=== PATIENT | male | born 1940 | race Caucasian/White ===

== ENCOUNTER → 2016-12-25 | Outpatient (CLI) | payer OTHER, BC ==
[~2016-12-25] MED LIST: ALDACTONE25 MG PO; AMLODIPINE BESYL5 MG PO; ASPIR 8181 MG PO; ASPIRIN EC81 M1 PO; ASPIRIN325 PO; BYSTOLIC 5 MG5 M1 PO; CARDURA4 MG PO; CHLORTHALIDONE25 MG PO; COUMADIN 5 MG TA5 M1 PO; COZAAR 25 MG TA25 M2 PO; COZAAR 50 MG TA50 M1 PO; COZAAR 50 MG TA50 M2 PO; DOCUSATE SODIU100 MG PO; EFFIENT10 MG PO; LEVOXYL50 MCG PO; LIPITOR 20 MG T20 M1 PO; LIVALO2 MG PO; LIVALO4 MG PO; MULTAQ400 MG PO; MULTI-VITAMIN1 EAC5 PO; NIACIN 500 MG500 M1 PO; NORVASC 5 MG TAB5 MG PO; PLAVIX 75 MG TA75 M1 PO; RESTORIL15 MG PO; TOPROL XL25 MG PO
== END ==
LOC: RAD 15:53
DX: M19.041 Primary osteoarthritis, right hand (principal)

== ENCOUNTER 2018-04-23 13:37 | Inpatient (IN) | payer OTHER, BC ==
[~2018-04-23] VITALS: Ht 170.2 cm; Wt 72.6 kg
--- NOTE | ~2018-04-23 | PATH ---
[facility] [address] [place] [address] PATHOLOGY RPT PROCEDURE Name: LUCAS MENEZES Room #: 360-P ADM IN M.R.#: [id number] Admission: 04/23/18 Date of : 42 Discharge: Report #: [id number] Path Case #: [id number] [facility] Accession Number: [id number] . 01 Material submitted: . BX OF GASTRITIS R/O H. PYLORI . 01 Clinical history: . Pre-OP DX: Hx of ulcers, GI bleed Post-OP DX: Gastritis, small hiatal hernia . 02 Diagnosis: Gastric mucosa, gastritis, endoscopic biopsy: - Mild reactive gastropathy. - Negative for intestinal metaplasia or atrophy. - Negative for Helicobacter pylori (properly controlled immunohistochemical stain performed). . (IUV:at;04/27/2018) QTA/04/27/2018 . 02 Electronically signed: . Alissa Merino MD, Pathologist NPI- [id number] . 01 Gross description: . Received in formalin labeled "Lucas Menezes HANNAH gastritis, rule out H. pylori," are 4 segments of thomas soft tissue measuring 0.9 x 0.7 x 0.2 cm in aggregate dimensions and ranging from 0.3 to 0.6 cm in maximum dimension. The specimen is submitted entirely in cassette A1. (TSD; 04/26/2018) TOB/TOB . 02 Pathologist provided ICD-10: K31.9 . 02 CPT . 170296, W80006 Specimen Comment: A courtesy copy of this report has been sent to Specimen Comment: [phone], , . Specimen Comment: Report sent to , DR BENITO / DR PETER Performed at: [address] [id number] MD Surjit Park MD Phone: [phone] Performed at: [address] [address] PATHOLOGY RPT PROCEDURE Name: LUCAS MENEZES Room #: 360-P ADM IN M.R.#: [id number] Admission: 04/23/18 Date of : 42 Discharge: Report #: [id number] Path Case #: [id number] [address] [place] [id number] MD Alissa Merino MD Phone: [phone]
--- NOTE | ~2018-04-23 | P ---
[facility] [place] [address] PROCEDURE REPORT Name: EMILY FLORES Room #: 360-P [facility] IN M.R.#: [id number] Admission: 04/23/18 Attend Phys: Brenton Blake MD Discharge: Date of : 41 Report #: [id number] THIS REPORT FOR: //name// CC: Brenton Rousseau BRIEF HISTORY: The patient is a 78-year-old male who was admitted with gastrointestinal bleeding. He had been on Eliquis. He does have a previous history of ulcer disease. He had a colonoscopy 2 days ago, which revealed diverticular disease which was thought to be the source of his bleeding, although active bleeding was not identified. However, he subsequently passed additional bloody stools and due to prior history of ulcer disease, upper endoscopy was recommended. PREOPERATIVE DIAGNOSIS: Gastrointestinal bleeding and anticoagulation. POSTOPERATIVE DIAGNOSES: 1. Mild diffuse gastritis. 2. Moderate hiatus hernia. MEDICATIONS: Deep sedation with propofol per anesthesia. SPECIMEN: Biopsies of gastritis. ESTIMATED BLOOD LOSS: 3 mL. PROCEDURE: EGD with biopsy. FINDINGS: Prior to propofol sedation, procedure of upper endoscopy was discussed with the patient as well as potential risks and its complications. He indicates he understands and desires to proceed. DESCRIPTION OF PROCEDURE: With the patient in left lateral decubitus position, the Olympus video endoscope was inserted in the cervical esophagus under direct vision without difficulty. Examination of this organ through its entire length revealed normal esophageal mucosa down the squamocolumnar junction. Squamocolumnar junction was inspected and noted to be unremarkable. The scope was advanced in the stomach, which was examined on end view as well as retroflexed views. Upon retroflexion, no mass lesions were seen, the hiatus hernia was seen. There was also some medication debris scattered about. There were no other solids or liquids in the stomach. No blood was seen proximally. The scope was advanced distally and noted to have diffuse gastritis with linear striations in the antrum of the stomach, but no ulcers, erosions or bleeding lesions. Vascular ectasias were not seen. The pylorus was unremarkable. Duodenal bulb was unremarkable. Duodenal sweep was unremarkable down to the ligament of Treitz. Scope was advanced around the ligament of Treitz and the [facility] [address] [place] [address] PROCEDURE REPORT Name: EMILY FLORES Room #: 360-P [facility] IN M.R.#: [id number] Admission: 04/23/18 Attend Phys: Brenton Blake MD Discharge: Date of : 41 Report #: [id number] first segment of the jejunum was unremarkable. At that point, the scope was slowly withdrawn and careful circumferential views were obtained. Gastric biopsies were obtained. The patient tolerated the procedure well. DISPOSITION: The patient with GI bleeding, an obvious bleeding source or ulcers were not seen on upper endoscopy. We will continue to monitor for bleeding. If there is further bleeding and thought not to be related to his colon, may consider further evaluation such as a bleeding scan or potentially a small bowel capsule study if needed. <ELECTRONICALLY SIGNED> By: Patrice Goodrich MD 04/27/18 1158 1158 2258 Patrice Goodrich MD /nt
[~2018-04-23 13:37] MED LIST changes: +ATORVASTATIN CA40 MG PO; +BENICAR20 MG PO; +DEMADEX20 MG PO; +ELIQUIS2.5 MG PO; +FLAGYL500 MG PO; +LEVAQUIN 500 M500 M2 PO; +PACERONE 200 M200 M1 PO; +SENOKOT-S1 TA2 PO
[2018-04-23 13:38] VITALS: BP 129/49
[2018-04-23 14:15] LABS: ABSOLUTE NEUTROPHILS 4.1 thou/uL (1.4-8.2); BASOPHILS 0.8 % (0.0-2.0); EOSINOPHILS 2.6 % (0.0-3.0); HEMATOCRIT 28.3 % (42.0-52.0); HEMOGLOBIN 9.5 gm/dL (14.0-18.0); LYMPHOCYTES 14.6 % (24.0-44.0); MCH 31.7 pg (26.0-34.0); MCHC 33.5 g/dL (28.0-37.0); MCV 94.8 fL (80.0-100.0); MONOCYTES 8.4 % (1.0-8.0); PLATELET COUNT 123 thou/uL (150-400); POLYS 73.6 % (36.0-66.0); RBC 2.98 mil/uL (4.50-6.00); RDW 17.1 % (10.5-14.5); WBC 5.5 thou/uL (4.0-11.0)
[2018-04-23 14:22] LABS: CALCIUM 8.4 mg/dL (8.5-10.1); CREATININE 4.4 mg/dL (0.7-1.3); POTASSIUM 4.2 mmol/L (3.5-5.1)
[2018-04-23 14:34] LABS: APTT 29.1 Seconds (24.5-32.8); INR 1.1; PROTIME 10.9 Seconds (9.3-11.4)
[2018-04-23 15:40] VITALS: BP 115/55; BP 129/49
[2018-04-23 16:55] VITALS: BP 163/57
[2018-04-23 18:16] LABS: HEMATOCRIT 26.1 % (42.0-52.0); HEMOGLOBIN 8.7 gm/dL (14.0-18.0)
[2018-04-23 19:03] VITALS: BP 164/69
[2018-04-24 00:06] VITALS: BP 152/57
[2018-04-24 02:31] LABS: HEMATOCRIT 27.4 % (42.0-52.0); HEMOGLOBIN 8.9 gm/dL (14.0-18.0)
[2018-04-24 03:34] VITALS: BP 136/55
[2018-04-24 06:12] LABS: HEMATOCRIT 26.5 % (42.0-52.0); HEMOGLOBIN 8.8 gm/dL (14.0-18.0); MCH 31.9 pg (26.0-34.0); MCHC 33.4 g/dL (28.0-37.0); MCV 95.4 fL (80.0-100.0); PLATELET COUNT 108 thou/uL (150-400); RBC 2.77 mil/uL (4.50-6.00); RDW 17.6 % (10.5-14.5); WBC 5.3 thou/uL (4.0-11.0)
[2018-04-24 06:23] LABS: CALCIUM 8.3 mg/dL (8.5-10.1); CREATININE 4.1 mg/dL (0.7-1.3); MAGNESIUM 2.1 mg/dL (1.8-2.4); POTASSIUM 4.5 mmol/L (3.5-5.1)
[2018-04-24 06:38] LABS: ABSOLUTE NEUTROPHILS 3.8 thou/uL (1.4-8.2); ANISOCYTOSIS 1+
[2018-04-24 06:39] LABS: POLYCHROMASIA OCCASIONAL
[2018-04-24 07:30] VITALS: BP 166/61
[2018-04-24] MEDS ORDERED: MOXIFLOXACIN3 ML OPHTHALMIC (08:03)
[2018-04-24 11:08] LABS: HEMATOCRIT 25.6 % (42.0-52.0); HEMOGLOBIN 8.5 gm/dL (14.0-18.0)
[2018-04-24 11:31] VITALS: BP 180/65
[2018-04-24 16:06] VITALS: BP 174/67
[2018-04-24 18:11] LABS: HEMATOCRIT 24.9 % (42.0-52.0); HEMOGLOBIN 8.2 gm/dL (14.0-18.0)
[2018-04-24 19:17] VITALS: BP 151/61
[2018-04-25 03:50] VITALS: BP 111/60
[2018-04-25 06:32] LABS: HEMATOCRIT 23.9 % (42.0-52.0); HEMOGLOBIN 8.1 gm/dL (14.0-18.0)
[2018-04-25 07:40] VITALS: BP 183/67
[2018-04-25 11:56] VITALS: BP 155/58
[2018-04-25 16:41] VITALS: BP 154/90
[2018-04-25 19:08] VITALS: BP 184/54
[2018-04-25 20:44] VITALS: BP 181/55
[2018-04-26 03:57] VITALS: BP 161/62
[2018-04-26 07:48] VITALS: BP 143/53
[2018-04-26 08:33] LABS: HEMATOCRIT 23.7 % (42.0-52.0); HEMOGLOBIN 7.8 gm/dL (14.0-18.0)
[2018-04-26 13:00] VITALS: BP 164/66
[2018-04-26 15:52] VITALS: BP 158/51
[2018-04-26 20:30] VITALS: BP 140/44
[2018-04-27 05:10] VITALS: BP 177/68
[2018-04-27 05:38] LABS: HEMATOCRIT 22.8 % (42.0-52.0); HEMOGLOBIN 7.5 gm/dL (14.0-18.0); MCH 31.4 pg (26.0-34.0); MCV 95.2 fL (80.0-100.0); RBC 2.39 mil/uL (4.50-6.00); RDW 16.8 % (10.5-14.5); WBC 5.5 thou/uL (4.0-11.0)
[2018-04-27 08:00] VITALS: BP 170/62
[2018-04-27 11:37] VITALS: BP 169/69
[2018-04-27 14:22] VITALS: BP 169/69
== END 2018-04-27 15:43 | disposition home or self-care (01) | DRG 377 ==
LOC: ER 13:37 → 3W 17:17 → ENTRNSPT 04-27 15:27 → EDTRNSPTSTS 04-27 15:30 → 3W 04-27 15:43
PROVIDERS: Nurse Practitioner; Nurse Practitioner Family; Physician Assistant; Specialist
PROC: 0DJD8ZZ Inspection of Lower Intestinal Tract, Via Natural or Artificial Opening Endoscopic (ICD-10-PCS; principal; 2018-04-24)
PROC: 0DB78ZX Excision of Stomach, Pylorus, Via Natural or Artificial Opening Endoscopic, Diagnostic (ICD-10-PCS; 2018-04-26)
DX: K57.31 Diverticulosis of large intestine without perforation or abscess with bleeding (principal); E43 Unspecified severe protein-calorie malnutrition; D62 Acute posthemorrhagic anemia; K29.70 Gastritis, unspecified, without bleeding; I73.9 Peripheral vascular disease, unspecified; E78.00 Pure hypercholesterolemia, unspecified; I48.91 Unspecified atrial fibrillation; I25.10 Atherosclerotic heart disease of native coronary artery without angina pectoris; N18.9 Chronic kidney disease, unspecified; H57.89 Other specified disorders of eye and adnexa; I12.9 Hypertensive chronic kidney disease with stage 1 through stage 4 chronic kidney disease, or unspecified chronic kidney disease; K44.9 Diaphragmatic hernia without obstruction or gangrene; E78.5 Hyperlipidemia, unspecified; R00.1 Bradycardia, unspecified; S00.83XA Contusion of other part of head, initial encounter; X58.XXXA Exposure to other specified factors, initial encounter; K64.8 Other hemorrhoids; Z95.5 Presence of coronary angioplasty implant and graft; Z86.73 Personal history of transient ischemic attack (TIA), and cerebral infarction without residual deficits; Z79.899 Other long term (current) drug therapy; Z79.82 Long term (current) use of aspirin; Z87.891 Personal history of nicotine dependence; Y93.89 Activity, other specified; Y92.89 Other specified places as the place of occurrence of the external cause
CPT/HCPCS: 10779; 62110; 62900; 70005

== ENCOUNTER 2019-01-24 12:29 | Emergency (ER) | payer OTHER, BC ==
[~2019-01-24] VITALS: Ht 180.3 cm; Wt 81.7 kg
[~2019-01-24 12:29] MED LIST changes: +MOXIFLOXACIN3 ML OPHTHALMIC
[2019-01-24] MEDS ORDERED: KEFLEX500 M1 PO (14:30)
[2019-01-24] MEDS ORDERED: PACERONE 200 M200 M1 PO (14:42)
[2019-01-24] MEDS ORDERED: NORVASC2.5 MG PO (14:44)
[2019-01-24] MEDS ORDERED: ASPIR 8181 MG PO (14:46)
[2019-01-24] MEDS ORDERED: CLONIDINE0.1 PO (14:47)
[2019-01-24 15:36] VITALS: BP 148/76
== END 2019-01-24 14:32 | disposition home or self-care (01) ==
LOC: ER 12:29
DX: S80.02XA Contusion of left knee, initial encounter (principal); L03.116 Cellulitis of left lower limb; I73.9 Peripheral vascular disease, unspecified; I10 Essential (primary) hypertension; I48.91 Unspecified atrial fibrillation; E78.00 Pure hypercholesterolemia, unspecified; Z95.5 Presence of coronary angioplasty implant and graft; Z86.718 Personal history of other venous thrombosis and embolism; W18.39XA Other fall on same level, initial encounter; Y92.89 Other specified places as the place of occurrence of the external cause; Y93.89 Activity, other specified; Y99.8 Other external cause status

== ENCOUNTER → 2019-10-20 | Outpatient (CLI) | payer OTHER, BC ==
[~2019-10-20] MED LIST changes: +CLONIDINE0.1 PO; +KEFLEX500 M1 PO; +NORVASC2.5 MG PO
== END ==
LOC: SJCVC 11:00
PROVIDERS: ATTEND Internal Medicine Cardiovascular Disease
DX: I44.0 Atrioventricular block, first degree (principal); I65.23 Occlusion and stenosis of bilateral carotid arteries; I25.10 Atherosclerotic heart disease of native coronary artery without angina pectoris; I77.1 Stricture of artery; I12.9 Hypertensive chronic kidney disease with stage 1 through stage 4 chronic kidney disease, or unspecified chronic kidney disease; N18.4 Chronic kidney disease, stage 4 (severe); I35.8 Other nonrheumatic aortic valve disorders; I73.9 Peripheral vascular disease, unspecified; E78.5 Hyperlipidemia, unspecified; I48.0 Paroxysmal atrial fibrillation; I71.4 Abdominal aortic aneurysm, without rupture

== ENCOUNTER → 2020-01-04 | Outpatient (CLI) | payer OTHER, BC | LOC: SJCVCIMAG 10:12 | PROVIDERS: ATTEND Internal Medicine Cardiovascular Disease | DX: I65.22 Occlusion and stenosis of left carotid artery (principal); Z87.891 Personal history of nicotine dependence ==

== ENCOUNTER → 2020-01-10 | Outpatient (CLI) | payer OTHER, BC ==
[~2020-01-10] MED LIST changes: +DIOVAN320 MG PO; +MIRCERA30 MCG/0.3 INJECTION; +PLAVIX 75 MG TA75 MG PO; +SYNTHROID25 MC1 PO; +TORSEMIDE20 MG PO
[2020-01-10 13:53] LABS: CREATININE 5.7 mg/dL (0.7-1.3)
== END ==
LOC: CAT 12:52
PROVIDERS: ATTEND Nuclear Medicine Nuclear Cardiology
DX: Z01.812 Encounter for preprocedural laboratory examination (principal); I65.22 Occlusion and stenosis of left carotid artery; I71.2 Thoracic aortic aneurysm, without rupture; K55.1 Chronic vascular disorders of intestine; I71.4 Abdominal aortic aneurysm, without rupture; I70.8 Atherosclerosis of other arteries; I25.10 Atherosclerotic heart disease of native coronary artery without angina pectoris; Z95.2 Presence of prosthetic heart valve; Z96.89 Presence of other specified functional implants

== ENCOUNTER → 2020-01-10 | Outpatient (CLI) | payer OTHER, BC ==
[~2020-01-10] MED LIST changes: +ANTACID CHEWAB1 EACH PO; +FLOMAX0.4 MG PO
== END ==
LOC: SJCVCIMAG 08:17
PROVIDERS: ATTEND Internal Medicine Cardiovascular Disease
DX: I73.9 Peripheral vascular disease, unspecified (principal); I44.0 Atrioventricular block, first degree; I49.3 Ventricular premature depolarization; I71.2 Thoracic aortic aneurysm, without rupture; I67.1 Cerebral aneurysm, nonruptured; I71.4 Abdominal aortic aneurysm, without rupture; I12.0 Hypertensive chronic kidney disease with stage 5 chronic kidney disease or end stage renal disease; N18.5 Chronic kidney disease, stage 5; E78.00 Pure hypercholesterolemia, unspecified; I25.10 Atherosclerotic heart disease of native coronary artery without angina pectoris; I70.1 Atherosclerosis of renal artery; I48.0 Paroxysmal atrial fibrillation; K55.1 Chronic vascular disorders of intestine; Z98.890 Other specified postprocedural states; Z87.891 Personal history of nicotine dependence; Z79.899 Other long term (current) drug therapy; Z86.79 Personal history of other diseases of the circulatory system

== ENCOUNTER 2020-08-06 11:46 | Inpatient (IN) | payer OTHER, BC ==
[~2020-08-06] VITALS: Ht 172.7 cm; Wt 78.0 kg
[~2020-08-06 11:46] MED LIST changes: -ANTACID CHEWAB1 EACH PO; -FLOMAX0.4 MG PO
[2020-08-06 11:56] VITALS: BP 87/51
[2020-08-06 12:44] LABS: BASOPHILS 0.2 % (0.0-2.0); HEMATOCRIT 28.8 % (42.0-52.0); HEMOGLOBIN 9.4 gm/dL (14.0-18.0); LYMPHOCYTES 3.9 % (24.0-44.0); MCH 36.2 pg (26.0-34.0); MCHC 32.7 g/dL (28.0-37.0); MCV 110.7 fL (80.0-100.0); MONOCYTES 5.9 % (1.0-8.0); PLATELET COUNT 166 thou/uL (150-400); RDW 17.9 % (10.5-14.5); WBC 15.5 thou/uL (4.0-11.0)
[2020-08-06 12:49] LABS: CALCIUM 9.3 mg/dL (8.5-10.1); CREATININE 3.4 mg/dL (0.7-1.3); POTASSIUM 4.2 mmol/L (3.5-5.1)
[2020-08-06] MEDS ORDERED: FLOMAX0.4 MG PO (12:54)
[2020-08-06 12:55] LABS: ALBUMIN 2.4 g/dL (3.4-5.0); TOTAL BILIRUBIN 0.7 mg/dL (0.2-1.0); TOTAL PROTEIN 6.1 g/dL (6.4-8.2)
[2020-08-06] MEDS ORDERED: HYDROCODON-ACE1 EAC7 PO (12:57)
[2020-08-06] MEDS ORDERED: ANTACID CHEWAB1 EACH PO (12:57)
[2020-08-06] MEDS ORDERED: ALEVE220 M1 PO (12:58)
[2020-08-06 13:18] LABS: ANISOCYTOSIS 1+; MACROCYTES 1+
--- NOTE | 2020-08-06 13:57 | EKG ---
[address] [employer] [place] [address] ELECTROCARDIOGRAM REPORT Name: EMILY FLORES Room #: 170-15 ADM IN M.R.#: [id number] Admission: 08/06/20 Attend Phys: Basilio Painting MD Discharge: Date of : 41 Report #: [id number] [facility] ED Test Date: 2020-08-06 Test Time: 12:43:03 Pat Name: EMILY FLORES Department: Room: 170 Gender: M Shipping Manager: ts : 1940 Requested By: Bud Hairston Order Number: [id number] MD: Velasquez Das Measurements Intervals [place] Rate: 108 P: TN: QRS: 6 QRSD: 90 T: 126 QT: 387 QTc: 519 Interpretive Statements AFIB Inferior infarct, old Prolonged QT interval Compared to ECG 01/26/2020 07:30:17 Atrial fibrillation now Electronically Signed On 08-06-2020 13:57:27 ASBESTOS HANDLER by Velasquez Das [email or web address] <ELECTRONICALLY SIGNED> By: Velasquez Das MD, [facility] 08/06/20 1357 1243 1243 Velasquez Das MD, FACC /EPI
[2020-08-06 14:32] VITALS: BP 93/52
[2020-08-06 14:41] LABS: FOLIC ACID 13.7 ng/mL (8.6-58.9)
[2020-08-06 15:15] VITALS: BP 115/75
[2020-08-06 15:20] VITALS: BP 103/54
--- NOTE | 2020-08-06 18:51 | NUR ---
TO UNIT FROM [place], ACCOMPANIED BY HIS . AFIB/AFLUTTER PER TELE. REPORTS NO BM FOR A WEEK. ABD SOFT BUT DISTENDED, IF BY FLUID. ABD TENDER TO THE TOUCH. FALL PRECAUTIONS IN PLACE.
[2020-08-06 21:14] VITALS: BP 138/62
[2020-08-07 04:00] VITALS: BP 157/57
--- NOTE | 2020-08-07 04:59 | NUR ---
HYDROCODONE WAS GIVEN FOR PAIN.VERBALIZED RELIEF.OLIGURIC.MONITOR SHOWS SR.POC CONTINUED.
[2020-08-07 05:01] LABS: CALCIUM 8.8 mg/dL (8.5-10.1); MAGNESIUM 1.9 mg/dL (1.8-2.4); POTASSIUM 4.4 mmol/L (3.5-5.1)
[2020-08-07 05:16] LABS: HEMATOCRIT 26.1 % (42.0-52.0); HEMOGLOBIN 8.6 gm/dL (14.0-18.0); MCHC 32.9 g/dL (28.0-37.0); MCV 112.7 fL (80.0-100.0); PLATELET COUNT 155 thou/uL (150-400); RBC 2.32 mil/uL (4.50-6.00); RDW 17.9 % (10.5-14.5); WBC 11.2 thou/uL (4.0-11.0)
[2020-08-07 05:32] LABS: CREATININE 5.3 mg/dL (0.7-1.3)
[2020-08-07 08:10] VITALS: BP 136/56
--- NOTE | 2020-08-07 10:11 | 2DMMODE ---
[facility] [address] 2 D/M-MODE ECHOCARDIOGRAM Name: EMILY FLORES Room #: 208-P ADM IN M.R.#: [id number] Admission: 08/06/20 Attend Phys: Basilio Painting MD Discharge: Date of : 41 Report #: [id number] THIS REPORT FOR: cc: Ollie Anthony MD, Samuel D. MD Santiago, Patrick MD [facility] ~ APPROVED REPORT Study performed: 08/07/2020 08:04:28 EXAM: Comprehensive 2D, Doppler, and color-flow Echocardiogram Patient Location: Bedside Room #: 208 Status: routine BSA: 1.86 HR: 80 bpm BP: 157/57 mmHg Rhythm: NSR Other Information Study Quality: Adequate Indications Hypotension. Hx: Cardiac stents, PAF, PVD, ESRD, PVD, HLP. 2D Dimensions RVDd: 36.67 mm IVSd: 14.67 (7-11mm) LVOT Diam: 21.25 (18-24mm) LVDd: 41.53 mm PWd: 10.63 (7-11mm) Ascending Ao: 29.82 (22-36mm) LVDs: 32.98 (25-40mm) Aortic Root: 35.48 mm Volumes Left Atrial Volume (Systole) Single Plane 4CH: 84.18 mL Single Plane 2CH: 84.35 mL LA ESV Index: 48.00 mL/m2 Aortic Valve AoV Peak David.: 2.90 m/s AO Peak Gr.: 33.72 mmHg LVOT Max P.40 mmHg AO Mean Gr.: 16.98 mmHg AO V2 Mean: 1.96 m/s LVOT Max V: 1.45 m/s [facility] [address] [place] [address] 2 D/M-MODE ECHOCARDIOGRAM Name: EMILY FLORES Room #: 208-P [facility] IN ..#: [id number] Admission: 08/06/20 Attend Phys: Basilio Painting MD Discharge: Date of : 41 Report #: [id number] AO V2 VTI: 58.27 cm PACO Vmax: 1.77 cm2 Mitral Valve E/A Ratio: 0.7 MV Decel. Time: 252.35 ms MV E Max David.: 0.98 m/s MV A David.: 1.35 m/s MV PHT: 73.18 ms Pulmonary Valve PV Peak David.: 1.36 m/s PV Peak Gr.: 7.36 mmHg Tricuspid Valve TR Peak David.: 2.68 m/s RAP Estimate: 5.00 mmHg TR Peak Gr.: 29.00 mmHg PA Pressure: 34.00 mmHg Left Ventricle The left ventricle is normal size. There is normal LV segmental wall motion. Moderate basal septal hypertrophy is present. Left ventricular systolic function is normal. LVEF is 65%. Mild diastolic dysfunction is present (impaired relaxation pattern). Right Ventricle The right ventricle is normal size. The right ventricular systolic function is normal. Atria Left atrium is moderately dilated. The right atrium size is normal. Aortic Valve Aortic valve is moderately calcified. Mild aortic regurgitation. There is mild valvular aortic stenosis. Calculated aortic valve area is 1.8 cm2 with maximum pressure gradient of 34 mmHg and mean pressure gradient of 17 mmHg. Mitral Valve The mitral valve is normal in structure. Moderate mitral annular calcification. Mild mitral regurgitation. No evidence of mitral valve stenosis. Tricuspid Valve The tricuspid valve is normal in structure. Trace tricuspid regurgitation. Estimated PAP is 35mmHg. [facility] [address] [place] [address] 2 D/M-MODE ECHOCARDIOGRAM Name: EMILY FLORES Room #: 208-P [facility] IN M.R.#: [id number] Admission: 08/06/20 Attend Phys: Basilio Painting MD Discharge: Date of : 41 Report #: [id number] Pulmonic Valve Pulmonic valve is not well visualized. Great Vessels The aortic root is normal in size. The ascending aorta is normal in size. IVC is normal in size and collapses >50% with inspiration. Pericardium There is no pericardial effusion. <Conclusion> Normal left ventricular size with moderate basal hypertrophy Ejection fraction 65%, no segmental wall motion abnormality Grade 1 diastolic function Normal right ventricular size and function Left ventricle moderately dilated Color-flow Doppler study was performed of the aortic/mitral/aortic/tricuspid valve Mild aortic valve calcification Mild aortic valve stenosis aortic valve area estimated 1.8 cm and a mean gradient of 34 mmHg Mild mitral valve insufficiency Trace tricuspid valve insufficiency PA pressure estimated 35 mmHg No pericardial effusion <ELECTRONICALLY SIGNED> By: Velasquez Das MD, FACC 08/07/20 1011 1011 1011 Velasquez Das MD, FACC /INF
[2020-08-07 10:58] LABS: ABSOLUTE NEUTROPHILS 9.3 thou/uL (1.4-8.2)
[2020-08-07 10:59] LABS: ANISOCYTOSIS 2+; MACROCYTES 1+; PLATELET ESTIMATE NORMAL
--- NOTE | 2020-08-07 11:39 | NUR ---
Case opened to follow for dc planning. Director Of Architecture visited with the pt and his spouse at bedside. Pt is a&ox4 and reports he is feeling better after being admitted with diverticulitis. He reports being indep with gait and adl's prior to admission. He does use a cane when going outside the home. He is an ESRD pt on hemodialysis at [facility]. is supportive and confirms above. Both drive. They live in their own home, no steps to enter and only one inside. CM role introduced. No dc planning needs indicated at this time. Cm to fax dc summary and instructions to [place] dialysis [place]. Pt asked to add dtr Karyna to the emergency contact list as their son Darius is not always available to answer his phone. Therapy has also evaluated the pt today and he was up walking in the hallways. Will follow along should dc needs arise.
[2020-08-07 12:25] VITALS: BP 127/74
[2020-08-07 15:35] VITALS: BP 130/62
[2020-08-07 19:52] VITALS: BP 129/65
[2020-08-08 03:32] VITALS: BP 108/60
[2020-08-08 04:57] LABS: CALCIUM 8.5 mg/dL (8.5-10.1); POTASSIUM 4.1 mmol/L (3.5-5.1)
--- NOTE | 2020-08-08 05:11 | NUR ---
ASSESSMENT: PT REMAIN ALERT AND ORIENT TIMES THREE. SOMETIMES FORGETFUL TO THINGS. ORDERS TO HAVE DIALYSIS IN THE MORNING WERE ACKNOWLEDGED. PT WAS RUNNING A LOW GRADE TEMP AT THE BEGINNING OF THE SHIFT, 99.0 TEMP DECREASED TO 98.4, PT WAS FOUND SWEATY AFTER SOME INTERFERRENCE ON THE MONITOR WAS NOTED. UP TO BSC WITH LOOSE STOOL. PT ANURIC. SR PER MONITOR. SLOW PROGRESS TOWARDS DC GOALS, WILL CONTINUE TO MONITOR.
[2020-08-08 05:19] LABS: CREATININE 6.9 mg/dL (0.7-1.3)
[2020-08-08 05:20] LABS: HEMATOCRIT 24.8 % (42.0-52.0); MCH 36.3 pg (26.0-34.0); MCHC 32.4 g/dL (28.0-37.0); RBC 2.22 mil/uL (4.50-6.00); RDW 17.4 % (10.5-14.5); WBC 9.1 thou/uL (4.0-11.0)
[2020-08-08 08:03] VITALS: BP 101/66
[2020-08-08 15:23] VITALS: BP 110/58
--- NOTE | 2020-08-08 19:09 | NUR ---
PT SEEN TODAY BY . PT WAS SCHEDULED FOR POSSIBLE DISCHARGE BUT WE ARE GOING TO MONITOR HEMOGLOBIN LEVEL OVERNIGHT PT WAS DIALYZED TODAY 1L OF FLUID WAS PULLED. NO COMPLAINTS OF NAUSEA/PAIN/VOMITTING THIS SHIFT. PAIN MEDICATION WAS GIVEN X1. PT WAS ACCOMPANIED BY THROUGHOUT THE SHIFT. CURRENT PLAN OF CARE/DISCHARGE FOCUS WAS EDUCATED WITH AT BEDSIDE. PT VERBALIZED UNDERSTANDING. VERY PLEASANT. RN SIGNING OFF NOW
[2020-08-08 20:31] VITALS: BP 103/60
[2020-08-08 23:06] LABS: HEP B SURFACE Ab(ANTI-HBS Reactive (()); HEPATITIS B SURFACE AG Negative (Negative)
[2020-08-09 03:42] VITALS: BP 116/60
[2020-08-09 05:02] LABS: HEMATOCRIT 23.7 % (42.0-52.0); HEMOGLOBIN 7.8 gm/dL (14.0-18.0); MCH 36.6 pg (26.0-34.0); MCHC 32.9 g/dL (28.0-37.0); MCV 111.1 fL (80.0-100.0); RBC 2.14 mil/uL (4.50-6.00); RDW 17.1 % (10.5-14.5); WBC 7.5 thou/uL (4.0-11.0)
[2020-08-09 05:07] LABS: CALCIUM 8.2 mg/dL (8.5-10.1); MAGNESIUM 1.8 mg/dL (1.8-2.4); POTASSIUM 3.7 mmol/L (3.5-5.1)
[2020-08-09 05:14] LABS: CREATININE 4.5 mg/dL (0.7-1.3)
--- NOTE | 2020-08-09 06:03 | NUR ---
Assumed pt care at 1900. A/OX4,VSS.Denies pain on assessment. Up ad carlos to BSC, having frequent small loose stools/flatulence and afraid of having accidents;pullups provided. Pt encouraged to call for help as needed. Will continue to monitor pt.
[2020-08-09 07:26] VITALS: BP 145/67
[2020-08-09 15:12] VITALS: BP 119/58
--- NOTE | 2020-08-09 15:23 | NUR ---
PT RESTING IN BED THROUGHOUT DAY, AT BEDSIDE. PT WORKED WITH PHYSICAL THERAPY TODAY. PT AFEBRILE, ANEURIC, NO BM (DIARRHEA RESOLVED), TOLERATING DIET. PT HAS NO S/S OF BLEEDING, THOUGH HEMOGLOBIN IS TRENDING DOWN PROVIDER AWARE. DIALYSIS FISTULA IN PLACE, THRILL AND BRUIT PRESENT. PT AND HAVE BEEN UPDATED AND EDUCATED ON PT CONDITION AND POC. PT PROGRESSING TOWARDS POC.
[2020-08-09 19:46] VITALS: BP 120/61
[2020-08-10 04:37] VITALS: BP 129/52
[2020-08-10 06:12] LABS: HEMATOCRIT 25.2 % (42.0-52.0); HEMOGLOBIN 8.1 gm/dL (14.0-18.0); MCH 35.9 pg (26.0-34.0); MCHC 32.2 g/dL (28.0-37.0); MCV 111.5 fL (80.0-100.0); RBC 2.26 mil/uL (4.50-6.00); RDW 16.9 % (10.5-14.5); WBC 9.1 thou/uL (4.0-11.0)
--- NOTE | 2020-08-10 07:41 | NUR ---
ASSUMED PATIENT CARE AT 1845. VITAL SIGNS STABLE WITH PATIENT HAVING MULTIPLE COMPLAINTS OF CHRONIC BACK PAIN WHICH WAS TREATED APPROPRIATELY THROUGH MEDICATIONS. FULLY ALERT AND ORIENTED, PATIENT IS ABLE TO CALL APPROPRIATELY FOR NEEDS AND PARTICIPATE IN CARE. MULTIPLE LOOSE BOWEL MOVEMENTS DURING SHIFT. PATIENT TO DIALYZE AND POSSIBLY DISCHARGE TODAY. CONTINUE PLAN OF CARE.
[2020-08-10 07:45] VITALS: BP 160/88
[2020-08-10] MEDS ORDERED: FOLIC ACID1 MG PO (11:08)
[2020-08-10] MEDS ORDERED: B-12500 MCG PO (11:08)
[2020-08-10] MEDS ORDERED: FLAGYL500 M1 PO (11:09)
[2020-08-10] MEDS ORDERED: CIPRO500 M1 PO (11:10)
[2020-08-10 11:55] VITALS: BP 121/68
[2020-08-10 12:05] VITALS: BP 129/52
--- NOTE | 2020-08-10 13:16 | NUR ---
ASSUMED CARE OF PT AT SHIFT CHANGE. ASSESSMENT CHARTED MEDS GIVEN PER SEP. PT A&OX4, NO C/O PAIN OR DISTRESS DURING SHIFT. DIALYSIS COMPLETE, 2L OFF. DISCHARGE ORDERS AND INSTRUCTIONS COMPLETE. IV AND TELE DC'D. PT TAKEN VIA WHEELCHAIR BY STAFF TO MAIN ENTRANCE, FAMILY WAITING WITH CAR.
--- NOTE | 2020-08-10 14:25 | NUR ---
FAXED CLINICAL UPDATE/DC SUMMARY TO [facility] RECEIVED CONFIRMATION.
== END 2020-08-10 13:18 | disposition home or self-care (01) | DRG 871 ==
LOC: ER 11:46 → EROBS 13:30 → 2N 13:30
PROVIDERS: Emergency Medicine; Internal Medicine; Internal Medicine Nephrology; Nurse Practitioner; Nurse Practitioner Family; ADMIT Hospitalist; ATTEND Hospitalist
PROC: 5A1D70Z Performance of Urinary Filtration, Intermittent, Less than 6 Hours Per Day (ICD-10-PCS; principal; 2020-08-07)
PROC: 5A1D70Z Performance of Urinary Filtration, Intermittent, Less than 6 Hours Per Day (ICD-10-PCS; 2020-08-10)
DX: A41.9 Sepsis, unspecified organism (principal); N18.6 End stage renal disease; K57.33 Diverticulitis of large intestine without perforation or abscess with bleeding; E46 Unspecified protein-calorie malnutrition; K55.1 Chronic vascular disorders of intestine; I48.92 Unspecified atrial flutter; I12.0 Hypertensive chronic kidney disease with stage 5 chronic kidney disease or end stage renal disease; I73.9 Peripheral vascular disease, unspecified; E78.00 Pure hypercholesterolemia, unspecified; E78.5 Hyperlipidemia, unspecified; I25.10 Atherosclerotic heart disease of native coronary artery without angina pectoris; I95.9 Hypotension, unspecified; E03.9 Hypothyroidism, unspecified; K59.09 Other constipation; I71.2 Thoracic aortic aneurysm, without rupture; D53.9 Nutritional anemia, unspecified; I48.0 Paroxysmal atrial fibrillation; I65.29 Occlusion and stenosis of unspecified carotid artery; I71.4 Abdominal aortic aneurysm, without rupture; R06.6 Hiccough; E55.9 Vitamin D deficiency, unspecified; G47.00 Insomnia, unspecified; N40.1 Benign prostatic hyperplasia with lower urinary tract symptoms; K52.9 Noninfective gastroenteritis and colitis, unspecified; R33.8 Other retention of urine; M62.84 Sarcopenia; Z86.16 Personal history of COVID-19; Z95.5 Presence of coronary angioplasty implant and graft; Z95.820 Peripheral vascular angioplasty status with implants and grafts; Z86.73 Personal history of transient ischemic attack (TIA), and cerebral infarction without residual deficits; Z68.26 Body mass index [BMI] 26.0-26.9, adult; Z86.010 Personal history of colon polyps; Z79.899 Other long term (current) drug therapy; Z99.2 Dependence on renal dialysis
CPT/HCPCS: 10194; 32100

== ENCOUNTER 2020-08-28 11:24 | Inpatient (IN) | payer OTHER, BC ==
[~2020-08-28] VITALS: Ht 172.7 cm; Wt 71.8 kg
[2020-08-28 11:24] VITALS: BP 115/54
[~2020-08-28 11:24] MED LIST changes: +ALEVE220 M1 PO; +ANTACID CHEWAB1 EACH PO; +B-12500 MCG PO; +CIPRO500 M1 PO; +FLAGYL500 M1 PO; +FLOMAX0.4 MG PO; +FOLIC ACID1 MG PO; +HYDROCODON-ACE1 EAC7 PO
[2020-08-28 12:14] LABS: ABSOLUTE NEUTROPHILS 12.3 thou/uL (1.4-8.2); BASOPHILS 0.2 % (0.0-2.0); EOSINOPHILS 0.3 % (0.0-3.0); HEMATOCRIT 25.1 % (42.0-52.0); HEMOGLOBIN 7.9 gm/dL (14.0-18.0); LYMPHOCYTES 2.8 % (24.0-44.0); MCH 33.8 pg (26.0-34.0); MCHC 31.6 g/dL (28.0-37.0); MCV 106.9 fL (80.0-100.0); MONOCYTES 3.2 % (1.0-8.0); PLATELET COUNT 139 thou/uL (150-400); POLYS 93.5 % (36.0-66.0); RBC 2.35 mil/uL (4.50-6.00); RDW 17.9 % (10.5-14.5); WBC 13.1 thou/uL (4.0-11.0)
[2020-08-28 12:37] LABS: BE(vivo) 0.5 mmol/L (-2 to +3); HCO3 23.6 mmol/L (22.0-26.0); PCO2 31.2 mmHg (35.0-45.0); PO2 72.7 mmHg (80.0-100.0); pH 7.496 (7.360-7.450); sO2 95.9 % (92.0-98.0)
[2020-08-28 12:42] LABS: CALCIUM 8.5 mg/dL (8.5-10.1); CREATININE 5.4 mg/dL (0.7-1.3); POTASSIUM 4.6 mmol/L (3.5-5.1)
[2020-08-28 13:02] LABS: ALBUMIN 1.8 g/dL (3.4-5.0); TOTAL BILIRUBIN 1.6 mg/dL (0.2-1.0); TOTAL PROTEIN 5.2 g/dL (6.4-8.2)
[2020-08-28 13:26] LABS: ANISOCYTOSIS 1+; MACROCYTES 2+
[2020-08-28 13:27] LABS: LARGE PLATELETS OCCASIONAL
--- NOTE | 2020-08-28 14:22 | 2DMMODE ---
[facility] [place] [address] 2 D/M-MODE ECHOCARDIOGRAM Name: EMILY FLORES Room #: 170-11 ADM IN M.R.#: [id number] Admission: 08/28/20 Attend Phys: Brenton Blake MD Discharge: Date of : 41 Report #: [id number] THIS REPORT FOR: cc: Ollie Anthony MD, Samuel D. MD Pastor,Yonny Freeman MD [facility] ~ APPROVED REPORT Study performed: 08/28/2020 13:48:18 EXAM: Limited 2D, Doppler, and color-flow Echocardiogram Patient Location: ER Status: ELY BSA: 1.81 HR: 81 bpm BP: 141/64 mmHg Rhythm: NSR Other Information Study Quality: Adequate Indications Limited echo for LV function, Elevated troponin. (Complete echo done 08/07/20). Hx: cardiac stents, PAF, PVD, ESRD, PVD, HLP. Aortic Valve AoV Peak David.: 2.80 m/s AO Peak Gr.: 31.39 mmHg AO Mean Gr.: 16.03 mmHg AO V2 Mean: 1.87 m/s AO V2 VTI: 53.41 cm Mitral Valve E/A Ratio: 0.7 MV Decel. Time: 161.19 ms MV E Max David.: 1.03 m/s MV A David.: 1.41 m/s MV PHT: 46.75 ms Tricuspid Valve TR Peak David.: 2.64 m/s RAP Estimate: 10.00 mmHg TR Peak Gr.: 28.00 mmHg PA Pressure: 38.00 mmHg [facility] [address] [address] 2 D/M-MODE ECHOCARDIOGRAM Name: EMILY FLORES Room #: 170-11 ADM IN M.R.#: [id number] Admission: 08/28/20 Attend Phys: Brenton Blake, Discharge: Date of : 41 Report #: [id number] Left Ventricle The left ventricle is normal size. Regional wall motion abnormalities are noted. Moderate basal septal hypertrophy is present. Left ventricular systolic function is mildly decreased. LVEF is 45%. Mild diastolic dysfunction is present (impaired relaxation pattern). Right Ventricle The right ventricle is normal size. Right ventricle is mildly hypokinetic. Atria Left atrium is dilated. The right atrium size is normal. Aortic Valve Aortic valve is moderately calcified. Peak pressure gradient of 31mmHg; mean of 16mmHg. Mild aortic regurgitation. trace aortic stenosis Mitral Valve Moderate mitral annular calcification. Mild mitral regurgitation. Tricuspid Valve The tricuspid valve is normal in structure. Mild tricuspid regurgitation. Estimated PAP is 35-40mmHg. Pericardium no effusion <Conclusion> The left ventricle is normal size. Moderate basal septal hypertrophy is present. Left ventricular systolic function is mildly decreased. LVEF is 45%. Mild diastolic dysfunction is present (impaired relaxation pattern). Right ventricle is mildly hypokinetic. Left atrium is dilated. Aortic valve is moderately calcified. Peak pressure gradient of 31mmHg; mean of 16mmHg. Mild aortic regurgitation. trace aortic stenosis Mild mitral regurgitation. [facility] [address] [place] [address] 2 D/M-MODE ECHOCARDIOGRAM Name: EMILY FLORES Room #: 170-11 ADM IN M.R.#: [id number] Admission: 08/28/20 Attend Phys: Brenton Blake, Discharge: Date of : 41 Report #: [id number] Mild tricuspid regurgitation. Estimated PAP is 35-40mmHg. no effusion <ELECTRONICALLY SIGNED> By: Yonny Baumann MD, FACC 08/28/20 142 21 21 Yonny Baumann MD, FACC /INF
[2020-08-28 16:00] LABS: % SATURATION 140 % (20-39); IRON 134 ug/dL (65-175); TIBC 96 ug/dL (250-450)
[2020-08-28 16:06] LABS: URINE BLOOD 1+ (Negative); URINE COLOR YELLOW; URINE GLUCOSE-RANDOM* TRACE (Negative); URINE KETONES TRACE (Negative); URINE NITRITE-REFLEX NEGATIVE (Negative); URINE PROTEIN (DIPSTICK) 2+ (Negative); URINE SPECIFIC GRAVITY >= 1.030 (1.005-1.035); URINE UROBILINOGEN 0.2 E.U./dl (0.2-1.0)
[2020-08-28 16:14] LABS: ICTOTEST (BILI CONFIRMATORY) Negative (Negative); URINE BILIRUBIN NEGATIVE (Negative); URINE CLARITY CLOUDY; URINE LEUKOCYTES-REFLEX 1+ (Negative)
[2020-08-28 16:21] LABS: SQUAMOUS None Seen /LPF (0-3)
[2020-08-28 16:22] LABS: AMORPHOUS URATES Moderate /LPF (None Seen); CASTS None Seen /LPF (None Seen); URINE RBC 0-2 Rare /HPF (0-2); URINE WBC-REFLEX 0-5 Rare /HPF (0-5)
--- NOTE | 2020-08-28 16:28 | NUR ---
80-year-old male presenting to the ER with progressive weakness and diarrhea for the last few weeks. Patient was recently admitted to our facility on 08-06-2020 for diverticulitis. He was released and at that time feeling moderately better. Since then he has become progressively more weak and has had continued diarrhea. Patient was found to be hypoxic upon arrival. He was initially placed on nasal cannula however that did not improve his oxygenation enough, so he was placed on nonrebreather at 12 L. Critical troponin was noted on labs. Dr. Baumann who does not recommend heparin at this time, request single dose of Lovenox. He will obtain an echo and consult. Patient did have first Covid vaccination and is due to have his second dose 4 days. COVID 19 PCR pending on 08-28-20 at 1447. Patient last discharged on 08-09-20 to home with with [facility] and without home health services. Spouse Greg Menezes is listed as authorized contact at [phone] and daughter Justine as well at [phone]. Patient is listed as A&O x4. CM will follow case for discharge needs.
[2020-08-28 19:50] VITALS: BP 138/63
--- NOTE | 2020-08-28 20:21 | NUR ---
Waiting to take pt to assigned room, it is being cleaned
[2020-08-28 21:42] VITALS: BP 158/54
[2020-08-29 02:21] VITALS: BP 156/85
[2020-08-29 07:00] LABS: ABSOLUTE NEUTROPHILS 10.9 thou/uL (1.4-8.2); BASOPHILS 0.2 % (0.0-2.0); EOSINOPHILS 0.1 % (0.0-3.0); HEMATOCRIT 23.7 % (42.0-52.0); HEMOGLOBIN 7.6 gm/dL (14.0-18.0); LYMPHOCYTES 1.7 % (24.0-44.0); MCH 33.7 pg (26.0-34.0); MCHC 32.1 g/dL (28.0-37.0); PLATELET COUNT 115 thou/uL (150-400); RBC 2.26 mil/uL (4.50-6.00); RDW 17.6 % (10.5-14.5); WBC 11.3 thou/uL (4.0-11.0)
[2020-08-29 07:13] LABS: ALBUMIN 1.6 g/dL (3.4-5.0); CALCIUM 8.6 mg/dL (8.5-10.1); MAGNESIUM 2.2 mg/dL (1.8-2.4); PHOSPHORUS 6.7 mg/dL (2.5-4.9); POTASSIUM 4.1 mmol/L (3.5-5.1)
--- NOTE | 2020-08-29 07:21 | EKG ---
[address] [address] ELECTROCARDIOGRAM REPORT Name: EMILY FLORES Room #: 359-P ADM IN M.R.#: [id number] Admission: 08/28/20 Attend Phys: Brenton Blake MD Discharge: Date of : 42 Report #: [id number] [facility] ED Test Date: 2020-08-28 Test Time: 12:15:18 Pat Name: EMILY FLORES Department: Room: 359 Gender: M Dental Equipment Repairer: BRITTA : 1940 Requested By: Jared Obrien Order Number: [id number] MD: Velasquez Das Measurements Intervals [place] Rate: 73 P: 8 CT: 158 QRS: -1 QRSD: 98 T: 117 QT: 436 QTc: 481 Interpretive Statements Sinus rhythm Probable LVH with secondary repol abnrm Inferior infarct, old Compared to ECG 08/06/2020 12:43:03 Atrial fibrillation no longer present Prolonged QT interval no longer present Myocardial infarct finding still present Electronically Signed On 08-29-2020 7:20:53 PLASTER DIE MAKER by Velasquez Das [email or web address] <ELECTRONICALLY SIGNED> By: Velasquez Das MD, FAC 08/29/20 0720 1215 1215 Velasquez Das MD, [facility] /EPI
[2020-08-29 07:30] VITALS: BP 170/81
--- NOTE | 2020-08-29 07:35 | EKG ---
[place] [address] [facility] [place] [address] ELECTROCARDIOGRAM REPORT Name: EMILY FLORES Room #: 359-P ADM IN M.R.#: [id number] Admission: 08/28/20 Attend Phys: Brenton Blake MD Discharge: Date of : 42 Report #: [id number] [facility] Test Date: 2020-08-29 Test Time: 07:23:28 Pat Name: EMILY FLORES Department: Room: 359 P Gender: M Drum Cleaner: KATHIA : 1940 Requested By: Catie Ibanez Order Number: [id number] MD: Edward Camargo Measurements Intervals [place] Rate: 83 P: -14 WV: 170 QRS: -10 QRSD: 101 T: 120 QT: 424 QTc: 499 Interpretive Statements Sinus rhythm Inferior infarct, old Poor R wave progression Baseline wander in lead(s) V3 Compared to ECG 08/28/2020 12:15:18 ST and T wave abnormality is less pronounced Electronically Signed On 08-29-2020 7:35:22 CHEMICAL PROJECT ENGINEER by Edward Camargo [email or web address] <ELECTRONICALLY SIGNED> By: Edward Camargo MD, [facility] 08/29/2035 2 2 Edward Camargo MD, [facility] /EPI
[2020-08-29 07:37] LABS: CREATININE 6.4 mg/dL (0.7-1.3)
[2020-08-29 08:11] LABS: SGPT 884 U/L (16-63)
--- NOTE | 2020-08-29 08:13 | NUR ---
PT ARRIVED TO UNIT VIA CART AND ON OPTI-FLOW. ADMISSION COMPLETED, CARE PLAN INITIATED, AND INTERVENTIONS UPDATED. PT WAS SETTLED AND ONLY COMPLAINT WAS NAUSEA X2 DURING SHIFT. ZOFRAN GIVEN WITH GOOD SUCCESS. PT STATES HIS STOMACH HURTS AFTER DRINKING WATER. PT EDUCATED SYSTEMS PROGRAMMER ANALYST LIGHT AND TO CALL TO AMBULATE DUE TO WEAKNESS.
[2020-08-29 08:39] LABS: SGOT 2330 U/L (15-37)
[2020-08-29 11:25] VITALS: BP 154/68
--- NOTE | 2020-08-29 13:28 | NUR ---
INITIAL ASSESSMENT: Received consult. Pt was admitted from home due to acute respiratory failure/sepsis. Pt placed in Enhanced Isolation due to positive COVID test. Pt is afebrile and requiring optiflow support. Pt is on IV abx and IV steorids. ID consulted. Pt with hx of ESRD and goes to the [facility] clinic. Pt was recently discharged home from [facility] on 08/09/2020. MARRY placed call to pt's room. No answer. MARRY spoke with pt's , Greg, via phone. Introduced role of SW. Pt is normally alert/orientated x 4. Pt and his live at home. 2 steps to enter the house and 1 step inside. Pt has a cane, walker and w/c at home to use as needed. Pt's PCP is Dr. Ollie Anthony. Pt's states that pt normally drives himself to/from dialysis. MARRY provided pt's with phone number for 3W nurses station, pt's room and SW. MARRY spoke with Eusebia at [facility] to provide update. The dialysis clinic is aware of pt testing positive for COVID. MARRY is following to assist a needed with discharge planning.
[2020-08-29 18:29] LABS: HEMOGLOBIN 8.6 gm/dL (14.0-18.0); MCH 33.6 pg (26.0-34.0); MCHC 31.9 g/dL (28.0-37.0); MCV 105.2 fL (80.0-100.0); RBC 2.56 mil/uL (4.50-6.00); RDW 17.6 % (10.5-14.5); WBC 13.4 thou/uL (4.0-11.0)
--- NOTE | 2020-08-29 20:15 | NUR ---
RN ASSUMED PT'S CARE AT 0700AM, PT IS A&OX3 , BUT PT IS VERY WAEK, PT IS ON HIGH FLOW O2 50L/MIN/NC , O2 95% TO KEEP O2SAT AT 91-94%, PT IS CONTINUING IV ABX, PT'S VS ARE STABLE, PT FINISHED HIS DAILYSIS AT 1800PM, REMOVAL 1400ML FLIUD, PT IS GOING TO HAVE HEPARIN DRIP FOR NSTEMI LIKELY , RN HAS REPORTED TO NEXT SHIFT.
[2020-08-29 20:32] VITALS: BP 113/68
--- NOTE | 2020-08-29 20:42 | NUR ---
PT FINISHED DIALYSIS, DAY NURSE COMPLETING DAY TIME ANTIBIOTICS. ATTEMPTS X 2 TO START ADDITIONAL IV FOR HEPARIN DRIP. PT REPORTED INCONTINENT STOOL. PT HAD TWO LARGE DARK BLACK LIQUID STOOLS. SPECIMEN OBTAINED. PROVIDER PEGGER NOTIFIED OF GI BLEED CONCERNS, PT REPORTS HISTORY OF THIS. PROVIDER CONTACTED DR PETER HEPARIN DRIP TO BE DISCONTINUED. BOARD CATCHER UPDATED.
--- NOTE | 2020-08-29 22:58 | NUR ---
PT RESTING IN BED. OPTI FLOW INTACT, PT DID REMOVE X 1, STATING IT WAS BOTHERING HIS NOSE. CONTINUOUS PULSE OX INTACT. LUNGS WITH WHEEZES. PT C/O SORE ROOF OF MOUTH AND DRY LIPS. MOUTH CARE PROVIDED AND PROVIDER PROJECT DRILLING ENGINEER NOTIFIED OF HIS COMPLAINT. CAI TO RANJITH. BS DECREASED, PREVIOUSLY NOTED DARK BLACK LIQUID STOOLS. SKIN TONE DUSKY. PT NEEDING ASSISTANCE WITH HOLDING FLUIDS BUT ABLE TO GRASP MEDICATIONS. BED ALARM ON.
[2020-08-30 00:12] VITALS: BP 142/57
--- NOTE | 2020-08-30 03:00 | NUR ---
PT STATED TWICE TONIGHT HE IS READY TO , PT ENCOURAGED TO TALK WITH DR IN THE AM, WILL HAVE DAY SHIFT NURSE FOLLOW THROUGH WITH CONVERSATION.
[2020-08-30 04:32] VITALS: BP 138/60
--- NOTE | 2020-08-30 05:53 | NUR ---
PTS OXYGEN SATURATION WAS MAINTAINING AT 77%, PULSE OX REPOSITIONED AND WAVE FORM STRONG. RESPIRATORY NOTIFIED. BIPAP AT ROOM.02 SATURATION RETURNED TO 90%. PROVIDER PROFESSOR OF POULTRY SCIENCE NOTIFIED AND ORDER FOR BIPAP OBTAINED. PROVIDER ALSO UPDATED ON PTS STATEMENTS REGARDING BEING READY TO AND WANTING TO TALK TO THE DR REGARDING THIS.
--- NOTE | 2020-08-30 06:08 | NUR ---
PT ON BIPAP, SATS 100%. PT DENIES DISTRESS.
--- NOTE | 2020-08-30 06:17 | NUR ---
PT CALLED NURSE ASKED HOW LONG HE NEEDS TO LEAVE THE BIPAP ON. HE DENIED WANTING MEDICINE TO HELP HIM RELAX AND STATED TAKE THIS GOD DAMN THING OFF. PT TOLD RESPIRATORY WOULD BE NOTIFIED. PROVIDER EQUIPMENT HIRE MANAGER UPDATED.
[2020-08-30 08:08] LABS: HIV ANTIBODY Non Reactive (Non Reactive)
[2020-08-30 09:00] VITALS: BP 143/71
[2020-08-30 09:35] LABS: HEMOGLOBIN 7.6 gm/dL (14.0-18.0); MCH 33.2 pg (26.0-34.0); MCHC 31.7 g/dL (28.0-37.0); MCV 104.9 fL (80.0-100.0); RBC 2.29 mil/uL (4.50-6.00); RDW 17.8 % (10.5-14.5); WBC 12.6 thou/uL (4.0-11.0)
[2020-08-30 09:47] LABS: ALBUMIN 1.6 g/dL (3.4-5.0); CALCIUM 8.7 mg/dL (8.5-10.1); DIRECT BILIRUBIN 0.7 mg/dL (<0.1-0.2); INR 1.5; POTASSIUM 3.5 mmol/L (3.5-5.1); PROTIME 14.9 Seconds (9.3-11.4); TOTAL BILIRUBIN 1.3 mg/dL (0.2-1.0)
--- NOTE | 2020-08-30 10:46 | NUR ---
MORNING MEDICATIONS HELD D/T N/V. PT NOW STATES HE DOES NOT WANT TO TAKE THEM BUT WANTS TO TRY JELLO FIRST. WILL REVISIT PER PT REQUEST.
--- NOTE | 2020-08-30 11:52 | HC ---
[facility] [place] [address] CONSULTATION Name: EMILY FLORES Room #: 359-P ADM IN M.R.#: [id number] Admission: 08/28/20 Attend Phys: Brenton Blake MD Discharge: Date of : 42 Report #: [id number] THIS REPORT FOR: cc: Ollie Anthony MD, Samuel D. MD Barry, Joseph W. MD ~ DATE OF SERVICE: 08/29/2020 INFECTIOUS DISEASE CONSULTATION ATTENDING PHYSICIAN: Dr. Brenton Blake REASON FOR EVALUATION: Septic shock with multiorgan dysfunction. Positive COVID testing, intractable diarrhea. HISTORY OF PRESENT ILLNESS: Chart reviewed, patient examined. This is a 80-year-old with extensive medical history, has end-stage renal disease, on hemodialysis for 2 years, actually had hospitalized earlier this year, was diagnosed with acute diverticulitis, was treated with empiric antibiotics, seemed to have improved; however, over the course of the last several weeks, he has had intractable diarrhea, progressive weakness, associated nausea, with anorexia and poor p.o. intake as well. He does self-catheterization makes very little urine. Due to concerns about progressive nature of his illness, he presented to the Emergency Room. Initial chest x-ray did raise the issue of pneumonitis, interstitial changes. Followup COVID testing was positive with antigen as well as PCR. ABG showed hypoxemia, pO2 of 72.7 on 12 liters per minute. Initial lactic acid was 5.0. Troponin was elevated at 5.35. He did have markedly elevated hepatic transaminases at 5649 AST and 1436 for the ALT, although the bili was mildly elevated at 1.6, albumin was 1.8. CT of the chest, abdomen and pelvis confirmed extensive interstitial opacities ground glass infiltrates, extensive atherosclerotic calcification, nodular changes of the surface of the liver, question of cirrhosis. Abdominal aortic aneurysm with aortobiiliac grafting. He was found to have bladder wall thickening, unchanged diverticula. Influenza antigen was negative. Urinalysis showed rare white cells. Procalcitonin elevated at 12.35. ProBNP of 40,816. Ferritin elevated at 59,268. He is empirically started on levofloxacin and vancomycin. Currently, he is just on the ladder. He has been started on dexamethasone as well. Blood cultures collected at time of admission are sterile thus far. Anicteric pathogen panel was unremarkable. Urine culture with growth of greater than 10 to the fifth Staph epi. ALLERGIES: None known. MEDICATIONS: Currently include vancomycin dose with dialysis, prochlorperazine, albuterol, amlodipine, zinc, ascorbic acid, cholecalciferol, metoprolol, [address] [address] CONSULTATION Name: SANDRAEMILY PARKER Room #: 359-P ADM IN M.R.#: [id number] Admission: 08/28/20 Attend Phys: Brenton Blake MD Discharge: Date of : 42 Report #: [id number] pantoprazole, guaifenesin, enoxaparin, dexamethasone, p.r.n. analgesics and antiemetics. PAST MEDICAL HISTORY: Includes peripheral vascular disease; hypertension; high cholesterol; AFib; diverticulitis; episode recently with chronic underlying diverticulosis; end-stage renal disease, on hemodialysis; has known vasculopathy; coronary artery disease; previous cardiac stenting; has renal artery stenting; aortic aneurysm with endograft; COPD. SOCIAL HISTORY: Former smoker, past ethanol, no illicit drug use. FAMILY HISTORY: Noncontributory. REVIEW OF SYSTEMS: Otherwise, unremarkable. PHYSICAL EXAMINATION: GENERAL: Appears chronically ill, undernourished. He is fairly lucid, bcvg-rr-gxeldsga distress. VITAL SIGNS: Temperature 98.2, pulse 77, respirations 18, blood pressure 154/68. SKIN: Warm, dry. HEENT: Normocephalic. Extraocular muscles intact. He has high flow oxygen in place with FiO2 of 87% at 60 liters per minute. He is currently on dialysis. LUNGS: Few scattered coarse breath sounds. HEART: Irregular. I do not appreciate a murmur. ABDOMEN: Mildly distended, somewhat firm, nontender. EXTREMITIES: No cyanosis. GENITOURINARY AND RECTAL: Deferred. LABORATORY DATA: Urine culture described above, greater than 10 to the fifth Staph epi. Parasite panel was negative. Enteric bacterial panel was negative. Blood cultures sterile thus far. Followup SGOT of 2330, which is down and SGPT of 884. Electrolytes: Sodium 137, potassium 4.1, chloride 98, bicarbonate is 25, anion gap of 14, BUN and creatinine 60 and 6.4, glucose of 122, albumin of 1.6. CBC from today, white count of 11.3, H and H 7.6 and 23.7, MCV of 105.0, platelet count of 115. Ferritin level of 59,268. ASSESSMENT: COVID-19 infection, complicated by pneumonitis and respiratory failure. Secondly, he has multiorgan dysfunction with a markedly abnormal laboratories including ferritin, have elevated procalcitonin, which raised question of a secondary bacterial etiology. He is critically ill at this point. We will continue empiric therapy. Add gram-negative coverage. He is presently candidate for remdesivir. We will add ivermectin. Continue corticosteroids. We will await culture results and adjust approach as dictated by additional [facility] [address] [place] [address] CONSULTATION Name: EMILY FLORES Room #: 359-P ADM IN M.R.#: [id number] Admission: 08/28/20 Attend Phys: Brenton Blake MD Discharge: Date of : 42 Report #: [id number] information. There are multiple studies are in progress. We will await those results. <ELECTRONICALLY SIGNED> By: Gee Gonzales MD 08/30/20 1152 1511 1747 Gee Gonzales MD /nt
[2020-08-30 12:07] LABS: HEMATOLOGY COMMENTS Note: (()); HEMOGLOBIN 7.7 g/dL (13.0-17.7)
[2020-08-30 12:51] VITALS: BP 142/66
--- NOTE | 2020-08-30 13:45 | NUR ---
SW reviewed chart and spoke with nursing and attending physician. Pt remains in Enhanced Isolation due to COVID. Pt is afebrile and requiring optiflow. Pt is on IV abx and IV steroids. Pt's code status changed to DNR earlier today. SW is following to assist as needed with discharge planning.
--- NOTE | 2020-08-30 13:51 | EKG ---
[address] [address] ELECTROCARDIOGRAM REPORT Name: EMILY FLORES Room #: 359-P ADM IN M.R.#: [id number] Admission: 08/28/20 Attend Phys: Brenton Blake MD Discharge: Date of : 42 Report #: [id number] [facility] Test Date: 2020-08-30 Test Time: 08:48:31 Pat Name: EMILY FLORES Department: Room: 359 P Gender: M Account Manager Relief: SBBARBARA : 1940 Requested By: Catie Ibanez Order Number: [id number] : Velasquez Das Measurements Intervals [place] Rate: 74 P: 2 MI: 200 QRS: -11 QRSD: 97 T: 142 QT: 436 QTc: 484 Interpretive Statements Sinus rhythm LVH with secondary repolarization abnormality Inferior infarct, old Compared to ECG 08/29/2020 07:23:28 Left ventricular hypertrophy now present Early repolarization now present Poor R-wave progression no longer present Myocardial infarct finding still present Electronically Signed On 08-30-2020 13:51:26 THRESHING DEPARTMENT SUPERVISOR by Velasquez Das [email or web address] <ELECTRONICALLY SIGNED> By: Velasquez Das MD, FAC 08/30/20 1351 0848 0848 Velasquez Das MD, [facility] /EPI
--- NOTE | 2020-08-30 14:38 | NUR ---
PT CALLED RN INTO ROOM. REQUESTED NO MORE TREATMENT FOR COVID INCLUDING DIALYSIS. PT STATES "I WANT TO GO HOME TO MY HEAVENLY FATHER". DR CHIKI ZHANG, APPROVED CONSULT FOR PALLIATIVE CARE.
--- NOTE | 2020-08-30 14:43 | NUR ---
Note Given: Y Facility List Provided:Y Tone Garcia: None at this time
[2020-08-30 16:08] LABS: CERULOPLASMIN 37.3 mg/dL (16.0-31.0)
[2020-08-30 17:42] VITALS: BP 144/73
--- NOTE | 2020-08-30 18:40 | NUR ---
OPTIFLOW REMOVED PER PT REQUEST AND ORDER FROM DR GILMAN. O2 APPLIED VIA NC AT 6L. PT STATES COMFORT AT THIS TIME. SATS 86% ON 6L VIA NC.
[2020-08-30 20:35] VITALS: BP 129/67
--- NOTE | 2020-08-30 21:07 | NUR ---
PER REPORT FROM OFF GOING NURSE: PT IS COMFORT CARE, WHICH HAS BEEN TAKEN CARE OF BY REMOVING HIS OPTIFLO AND PLACING HIM ON N/C 6 LITERS. HE IS NOT UP TO TAKING HIS PO MEDICATIONS TONIGHT. HE WAS ABLE TO LISTEN TO HIS AND DAUGHTER TALK ON THE PHONE WHILE HE LISTENED. HE IS COMFORTABLE NOW, HE IS ABLE TO NOD HIS HEAD AND OPEN HIS EYES. O2 SATS ARE IN THE MID 80'S, HEART RATE IN THE 60'S.
[2020-08-31 00:06] LABS: HAV IgM AB (ANTI-HAV IgM) Negative (Negative); HEPATITIS B SURFACE AG Negative (Negative); HEPATITIS C VIRUS AB 0.1 (0.0-0.9)
--- NOTE | 2020-08-31 01:20 | NUR ---
DIALYSIS PERSON CAME BY MICAH TO SET UP FOR 2/12 AM. EXPLAINED THAT PATIENT IS REFUSING ALL AGRESSIVE CARE. HE STATED CLEARLY THAT HE DOES NOT WANT ANYMORE DIALYSIS, NO MORE HIGH LEVELOF OXYGEN, HE WANTS TO BE ALLOWED TO REST AND BE COMFORTABLE.
--- NOTE | 2020-08-31 03:33 | NUR ---
AWAKENED VERY AIR HUNGRY. GAVE MSO4, WITH EFFECIVE CONTRO, OF HIS, ANXIETY AND SOB. HE IS MOSTLY BELLY BREATHING AND IS RESTING WITH 6 LITERS N/C ON TONIGHT.
[2020-08-31 04:31] VITALS: BP 117/58
--- NOTE | 2020-08-31 06:34 | NUR ---
SPOKE WITH PTS , SHE IS GLAD THAT HER IS FINALLY COMFORTABLE AND HAS MADE HIS DECISION TO DENIE AGRESSIVE CARE. REASSURED HER ABOUT THE CARE HE IS RECIEVING.
[2020-08-31 09:19] VITALS: BP 114/61
[2020-08-31 11:04] VITALS: BP 113/44
--- NOTE | 2020-08-31 14:02 | NUR ---
SW reviewed chart and spoke with nursing and attending physician. Pt decided yesterday that he wanted to stop all aggressive treatment and be on comfort care. Palliative care physician consulted and met with pt yesterday. Comfort care measures initiated. Pt is on O2 via NC. Pt chose to remain at [facility] on comfort care. Pt's family aware of plan of care. SW is following to assist as needed.
[2020-08-31 16:26] LABS: IgG 1365
--- NOTE | 2020-08-31 18:32 | NUR ---
CONT ON PALIATIVE CARE. HE IS ALERT ORIENTED X4. RESPIRATIONS NOT LABORED. CONT WITH PLAN OF CARE.
[2020-08-31 20:31] VITALS: BP 111/76
[2020-09-01 04:31] VITALS: BP 125/38
[2020-09-01 04:44] LABS: CALCIUM 8.4 mg/dL (8.5-10.1); POTASSIUM 4.3 mmol/L (3.5-5.1)
[2020-09-01 04:55] LABS: HEMOGLOBIN 7.9 gm/dL (14.0-18.0); MCH 33.2 pg (26.0-34.0); MCHC 31.8 g/dL (28.0-37.0); RBC 2.37 mil/uL (4.50-6.00); RDW 18.1 % (10.5-14.5)
[2020-09-01 04:57] LABS: HEMATOCRIT 24.8 % (42.0-52.0); MCV 104.5 fL (80.0-100.0)
--- NOTE | 2020-09-01 06:27 | NUR ---
08/31 PT WAS MOVED TO COMFORT CARE. 02 IS AT 6L VIA NC. PT IS VERY LETHARGIC AND RESPONSES ARE SLOW. PT ASKED FOR SOME WATER AND LATER IN THE SHIFT SOMETHING FOR NAUSEA. PT CALLED AND STATED, "I'M COVID POSITIVE NOW, DO YOU THINK I CAN COME VISIT HIM? I STATED I'M SORRY THAT THE HOSPITAL WOULD NOT ALLOW THAT. HER NEXT STATEMENT WAS, "EVEN IF I GOWN UP AND WEAR A MASK?" REEDUCATED ON COVID POLICIES. VSS OVERNIGHT, SINCE NO DIALYSIS BUN AND CR ARE HIGHLY ELEVATED.
[2020-09-01 07:23] VITALS: BP 122/62
--- NOTE | 2020-09-01 16:33 | NUR ---
PATIENT CONT ON COMFORT CARE AT THIS TIME. ALERT X4. JUST TOO WEAK TO SPEAK OR MOVED. NEEDS TO BE TURNED Q2. HE CONT TO SLEEP AT THIS TIME. WILL CONT TO MONITOR AND ASSIST NEEDED.
[2020-09-01 19:37] VITALS: BP 132/60
--- NOTE | 2020-09-02 06:33 | NUR ---
PT AT 454. NOTIFIED ALL APPROPRIATE PARTIES, CALL HEATHER HOME IN [place]. ALL PAPER WORK AND INTERVENTIONS COMPLETED. PRIOR TO , PT RESPIRATORY RATE AND SATURATION DROPPED TO BELOW 80%. HR BEGAN TO DROP. PT WAS UNRESPONSIVE, TRIED STERNAL RUBS AND CALLING PTS NAME WITH NO RESPONSE. HR STOPPED AND ON TELE MONITOR HR WAS 0. 2ND RN TV CONFIRMED AT 454.
== END 2020-09-02 06:32 | DRG 871 ==
LOC: ER 11:24 → 3W 13:41 → EROBS 13:41 → 3W 22:15
PROVIDERS: Nurse Practitioner; Nurse Practitioner Adult Health; Physician Assistant; Specialist; ADMIT Internal Medicine; ATTEND Internal Medicine
PROC: 5A0945A Assistance with Respiratory Ventilation, 24-96 Consecutive Hours, High Flow/Velocity Cannula (ICD-10-PCS; 2020-08-28)
PROC: 5A1D70Z Performance of Urinary Filtration, Intermittent, Less than 6 Hours Per Day (ICD-10-PCS; principal; 2020-08-31)
DX: A41.9 Sepsis, unspecified organism (principal); N18.6 End stage renal disease; I21.4 Non-ST elevation (NSTEMI) myocardial infarction; J96.21 Acute and chronic respiratory failure with hypoxia; U07.1 COVID-19; J12.82 Pneumonia due to coronavirus disease 2019; I48.21 Permanent atrial fibrillation; I12.0 Hypertensive chronic kidney disease with stage 5 chronic kidney disease or end stage renal disease; A04.72 Enterocolitis due to Clostridium difficile, not specified as recurrent; E78.00 Pure hypercholesterolemia, unspecified; I25.10 Atherosclerotic heart disease of native coronary artery without angina pectoris; E78.5 Hyperlipidemia, unspecified; I73.9 Peripheral vascular disease, unspecified; I48.0 Paroxysmal atrial fibrillation; E03.9 Hypothyroidism, unspecified; I08.0 Rheumatic disorders of both mitral and aortic valves; R33.9 Retention of urine, unspecified; D64.9 Anemia, unspecified; K76.89 Other specified diseases of liver; I71.2 Thoracic aortic aneurysm, without rupture; Z51.5 Encounter for palliative care; Z66 Do not resuscitate; Z87.891 Personal history of nicotine dependence; Z95.5 Presence of coronary angioplasty implant and graft; Z79.01 Long term (current) use of anticoagulants; Z79.899 Other long term (current) drug therapy; Z99.2 Dependence on renal dialysis
CPT/HCPCS: 10879; 32100